=== PATIENT | male | born 1960 | race Caucasian/White ===

== ENCOUNTER → 2018-06-02 | Outpatient (CLI) | payer MEDICARE ==
[~2018-06-02] MED LIST: ASP325T; EZET10TA5; FENO145T2; HCT25T; MELO7.5T; METO50TA7; MULT-608; NITROQUICK; OMG1KC; PNT40TEC; RAMI10TA; ROPI1TAB40; SIMV80TA3; TPR25T; TRAM1TAB7; VENL150C
--- NOTE | 2018-06-02 15:07 | Diagnostic Imaging Report ---
INDICATION: Right knee pain. Three views were obtained. FINDINGS: Alignment is normal. There are mild degenerative changes. There is no fracture or dislocation. Soft tissues are unremarkable. IMPRESSION: Mild degenerative changes otherwise unremarkable. Dictated by: Dictated on workstation # [id number]
== END ==
LOC: RAD FS 14:41
PROVIDERS: ATTEND Family Medicine
DX: M17.11 Unilateral primary osteoarthritis, right knee (principal)
CPT/HCPCS: 73562